=== PATIENT | female | born 1985 | race African-American/Black ===

== ENCOUNTER 2021-03-18 15:37 | Outpatient (CLI) | payer BC, SELFPAY ==
--- NOTE | ~2021-03-18 | US_ITS ---
EXAMINATION: US OB <= 14 weeks fetus DATE: 03/18/2021 16:13 INDICATION: Threatened miscarriage. TECHNIQUE: Real-time transabdominal pelvic ultrasound was performed. COMPARISON: None. FINDINGS: The uterus measures 15.6 x 8.6 x 5.8 cm. There is an intrauterine gestational sac. A yolk sac is yoana ntified. The crown rump length measures 2.1 cm, which correlates with an estimated gestational age of 8 weeks and 5 day(s) (+/-) 5 day(s). heart motion is not identified by cine imaging or color Doppler. The ovaries are not visualized. There is no free fluid in the pelvis. IMPRESSION: 1. demise. Reviewed, dictated and finalized at location A. IMPRESSION: 1. demise.
== END 2021-03-18 15:38 | disposition home or self-care (01) ==
LOC: ANHIMG 15:45
PROVIDERS: PCP Internal Medicine; Visit Provider Obstetrics & Gynecology
DX: O20.0 Threatened abortion (principal); Z3A.01 Less than 8 weeks gestation of pregnancy
CPT/HCPCS: 76801